=== PATIENT | male | born 1950 | race African-American/Black ===

== ENCOUNTER 2021-06-19 09:21 | Day surgery (SDC) | payer OTHER ==
[2021-06-19] MEDS ORDERED: FAMOTIDINE 20 MG/50 ML IVPB 20 MG/50 ML MG IVPB ONE (10:00)
[2021-06-19] MEDS ORDERED: DEXAMETHASONE SODIUM PHOSPHATE 10 MG, DIPHENHYDRAMINE 25 MG in SODIUM CHLORIDE 100 ML IVPB ONE (10:00)
[2021-06-19] MEDS ORDERED: PALONOSETRON HCL 0.25 MG/5 ML VIAL IVPUSH ONE (10:00)
[2021-06-19] MEDS ORDERED: PACLITAXEL IVPB ONE (10:30)
[2021-06-19] MEDS ORDERED: SODIUM CHLORIDE IVPB ONE (10:30)
[2021-06-19] MEDS ORDERED: CARBOplatin 135 MG in SODIUM CHLORIDE 250 ML IVPB ONE (11:00)
[2021-06-19 11:31] LABS: ALBUMIN 3.2 g/dl (3.4-5.0); BLOOD UREA NITROGEN 17.6 mg/dL (7-18); CALCIUM 8.6 mg/dL (8.5-10.1)
[2021-06-19 11:34] LABS: CREATININE 1.8 mg/dL (0.55-1.3)
[2021-06-19 11:36] LABS: BILIRUBIN,TOTAL 0.4 mg/dL (0.2-1); TOT PROT 5.8 g/dl (6.4-8.2)
[2021-06-19 11:47] LABS: BASO % 0.7 % (0-2.0); EOS % 9.9 % (0-4.5); HEMATOCRIT 29.7 % (35.4-49); HEMOGLOBIN 9.7 GM/dL (11.7-16.9); MCH 30.7 pg (25.7-33.7); MCHC 32.7 g/dl (32.0-35.9); MEAN CELL VOLUME 93.9 fl (80-96); MEAN PLT VOLUME 7.4 fl (7.5-11.1); NEUT % 71.4 % (42.8-82.8); PLATELET COUNT 252 10^3/uL (134-434); RBC 3.16 M/mm3 (4.00-5.60); RDW 18.6 % (11.9-15.9); WHITE BLOOD COUNT 6.4 K/mm3 (4.0-10.0)
[2021-06-19 17:45] VITALS: TEMP 98.3
[2021-06-19 18:36] VITALS: BP 145/76; PULSE 102
== END 2021-06-19 18:43 | disposition home or self-care (01) ==
LOC: JCHEMO 09:21 → J7W 09:36 → JCHEMO 18:43
PROVIDERS: ATTEND Internal Medicine Hematology & Oncology
PROC: 02HV33Z Insertion of Infusion Device into Superior Vena Cava, Percutaneous Approach (ICD-10-PCS; principal; 2021-06-19)
PROC: B518ZZA Fluoroscopy of Superior Vena Cava, Guidance (ICD-10-PCS; 2021-06-19)
DX: Z51.11 Encounter for antineoplastic chemotherapy (principal); C34.90 Malignant neoplasm of unspecified part of unspecified bronchus or lung
CPT/HCPCS: 36415; 36569; 36573; 77001-TC-FY; 80053; 85025; 96367; 96375; 96413; 96417; C1751; J2469

== ENCOUNTER 2021-06-26 09:54 | Day surgery (SDC) | payer OTHER ==
[~2021-06-26 09:54] MED LIST: DEXAMETHASONE SODIUM PHOSPHATE 10 MG, DIPHENHYDRAMINE 25 MG in SODIUM CHLORIDE 100 ML IVPB ONE; FAMOTIDINE 20 MG/50 ML IVPB 20 MG/50 ML MG IVPB ONE; PACLITAXEL IVPB ONE; PALONOSETRON HCL 0.25 MG/5 ML VIAL IVPUSH ONE; SODIUM CHLORIDE IVPB ONE
[2021-06-26] MEDS ORDERED: CARBOplatin 135 MG in SODIUM CHLORIDE 250 ML IVPB ONE (10:00)
[2021-06-26 11:47] LABS: BASO % 0.5 % (0-2.0); EOS % 4.8 % (0-4.5); HEMATOCRIT 27.4 % (35.4-49); LYMPH % 5.1 % (8-40); MCH 30.8 pg (25.7-33.7); MCHC 32.9 g/dl (32.0-35.9); MEAN CELL VOLUME 93.7 fl (80-96); MEAN PLT VOLUME 6.9 fl (7.5-11.1); MONO % 6.9 % (3.8-10.2); NEUT % 82.7 % (42.8-82.8); PLATELET COUNT 297 10^3/uL (134-434); RBC 2.92 M/mm3 (4.00-5.60); WHITE BLOOD COUNT 6.1 K/mm3 (4.0-10.0)
[2021-06-26 12:59] LABS: ALBUMIN 3.2 g/dl (3.4-5.0); BILIRUBIN,TOTAL 0.4 mg/dL (0.2-1); BLOOD UREA NITROGEN 21.8 mg/dL (7-18); CALCIUM 8.8 mg/dL (8.5-10.1); CREATININE 1.8 mg/dL (0.55-1.3); TOT PROT 5.9 g/dl (6.4-8.2)
[2021-06-26 16:09] VITALS: BP 111/54; PULSE 67; TEMP 154
== END 2021-06-26 15:58 | disposition home or self-care (01) ==
LOC: JRADIR 09:54
PROVIDERS: ATTEND Internal Medicine Hematology & Oncology
PROC: 02HV33Z Insertion of Infusion Device into Superior Vena Cava, Percutaneous Approach (ICD-10-PCS; principal; 2021-06-26)
PROC: B518ZZA Fluoroscopy of Superior Vena Cava, Guidance (ICD-10-PCS; 2021-06-26)
PROC: 3E04305 Introduction of Other Antineoplastic into Central Vein, Percutaneous Approach (ICD-10-PCS; 2021-06-26)
DX: Z51.11 Encounter for antineoplastic chemotherapy (principal); C34.90 Malignant neoplasm of unspecified part of unspecified bronchus or lung
CPT/HCPCS: 36415; 36569; 36573; 77001-TC-FY; 80053; 85025; 96367; 96375; 96413; 96417; C1751; J2469

== ENCOUNTER 2021-07-03 09:38 | Day surgery (SDC) | payer OTHER ==
[2021-07-03] MEDS ORDERED: CARBOplatin 135 MG in SODIUM CHLORIDE 250 ML IVPB ONE (10:00)
[2021-07-03 11:19] LABS: BASO % 0.9 % (0-2.0); EOS % 3.7 % (0-4.5); HEMATOCRIT 25.3 % (35.4-49); HEMOGLOBIN 8.2 GM/dL (11.7-16.9); LYMPH % 6.3 % (8-40); MCH 30.4 pg (25.7-33.7); MCHC 32.5 g/dl (32.0-35.9); MEAN CELL VOLUME 93.7 fl (80-96); MONO % 7.5 % (3.8-10.2); NEUT % 81.6 % (42.8-82.8); PLATELET COUNT 277 10^3/uL (134-434); RDW 18.4 % (11.9-15.9); WHITE BLOOD COUNT 5.1 K/mm3 (4.0-10.0)
[2021-07-03 11:49] LABS: ALBUMIN 3.1 g/dl (3.4-5.0); BLOOD UREA NITROGEN 20.9 mg/dL (7-18); CALCIUM 8.8 mg/dL (8.5-10.1)
[2021-07-03 11:53] LABS: CREATININE 1.9 mg/dL (0.55-1.3)
[2021-07-03 11:55] LABS: BILIRUBIN,TOTAL 0.4 mg/dL (0.2-1); TOT PROT 5.9 g/dl (6.4-8.2)
[2021-07-03 17:15] VITALS: BP 118/63; PULSE 70; TEMP 98.5
== END 2021-07-03 17:00 | disposition home or self-care (01) ==
LOC: JRADIR 09:38
PROVIDERS: ATTEND Internal Medicine Hematology & Oncology
PROC: 02HV33Z Insertion of Infusion Device into Superior Vena Cava, Percutaneous Approach (ICD-10-PCS; principal; 2021-07-03)
PROC: B518ZZA Fluoroscopy of Superior Vena Cava, Guidance (ICD-10-PCS; 2021-07-03)
PROC: 3E04305 Introduction of Other Antineoplastic into Central Vein, Percutaneous Approach (ICD-10-PCS; 2021-07-03)
DX: Z51.11 Encounter for antineoplastic chemotherapy (principal); C34.90 Malignant neoplasm of unspecified part of unspecified bronchus or lung
CPT/HCPCS: 36415; 36569; 36573; 77001-TC-FY; 80053; 85025; 96367; 96413; 96417; C1751; J2469

== ENCOUNTER 2021-07-10 09:53 | Day surgery (SDC) | payer OTHER ==
[2021-07-10] MEDS ORDERED: PALONOSETRON HCL 0.25 MG/5 ML VIAL IVPUSH ONE (10:30)
[2021-07-10] MEDS ORDERED: FAMOTIDINE 20 MG/50 ML IVPB 20 MG/50 ML MG IVPB ONE (10:30)
[2021-07-10] MEDS ORDERED: DEXAMETHASONE SODIUM PHOSPHATE 10 MG, DIPHENHYDRAMINE 25 MG in SODIUM CHLORIDE 100 ML IVPB ONE (10:30)
[2021-07-10] MEDS ORDERED: PACLITAXEL IVPB ONE (11:00)
[2021-07-10] MEDS ORDERED: SODIUM CHLORIDE IVPB ONE ×2 (11:00→12:00)
[2021-07-10 11:10] LABS: BASO % 1.2 % (0-2.0); EOS % 2.4 % (0-4.5); HEMATOCRIT 24.4 % (35.4-49); HEMOGLOBIN 8.1 GM/dL (11.7-16.9); LYMPH % 7.1 % (8-40); MCH 31.3 pg (25.7-33.7); MCHC 33.3 g/dl (32.0-35.9); MEAN CELL VOLUME 93.8 fl (80-96); MEAN PLT VOLUME 6.8 fl (7.5-11.1); MONO % 9.3 % (3.8-10.2); PLATELET COUNT 190 10^3/uL (134-434); RDW 17.9 % (11.9-15.9); WHITE BLOOD COUNT 3.7 K/mm3 (4.0-10.0)
[2021-07-10 11:37] LABS: ALBUMIN 3.1 g/dl (3.4-5.0); BLOOD UREA NITROGEN 19.7 mg/dL (7-18); CALCIUM 8.7 mg/dL (8.5-10.1)
[2021-07-10 11:40] LABS: CREATININE 2.1 mg/dL (0.55-1.3)
[2021-07-10 11:42] LABS: BILIRUBIN,TOTAL 0.4 mg/dL (0.2-1); TOT PROT 6.3 g/dl (6.4-8.2)
[2021-07-10] MEDS ORDERED: CARBOplatin 135 MG in SODIUM CHLORIDE 250 ML IVPB ONE (12:00)
[2021-07-10] MEDS ORDERED: CARBOPLATIN IVPB ONE (12:00)
[2021-07-10 16:16] VITALS: TEMP 98.3
[2021-07-10 16:26] VITALS: BP 131/56; PULSE 68
== END 2021-07-10 15:35 | disposition home or self-care (01) ==
LOC: JRADIR 09:53
PROVIDERS: ATTEND Internal Medicine Hematology & Oncology
PROC: 05HY33Z Insertion of Infusion Device into Upper Vein, Percutaneous Approach (ICD-10-PCS; principal; 2021-07-10)
DX: C34.90 Malignant neoplasm of unspecified part of unspecified bronchus or lung (principal)
CPT/HCPCS: 36415; 36569; 36573; 77001-TC-FY; 80053; 85025; 86850; 86870; 86880; 86900; 86901; 86902; C1751; J2469

== ENCOUNTER 2021-07-17 09:27 | Inpatient (IN) | payer OTHER ==
[2021-07-17] MEDS ORDERED: SODIUM CHLORIDE 2,109 ML IV ONE (10:37)
[2021-07-17] MEDS ORDERED: ACETAMINOPHEN 500 MG TABLET (FP) PO ONE (10:38)
[2021-07-17] MEDS ORDERED: VANCOMYCIN 1 GM in D5W (PRE-DOCKED) 1,000 MG/250 ML IVPB ONE (10:39)
[2021-07-17] MEDS ORDERED: ACETAMINOPHEN 325 MG TABLET (FP) ONE (10:51)
[2021-07-17] MEDS ORDERED: VANCOMYCIN 1 GRAM (PRE-DOCKED) 1,000 MG/250 ML BAG IVPB ONE (10:52)
[2021-07-17 12:34] LABS: VENOUS BASE EXCESS 3.7 mmol/L (-2-2); VENOUS PCO2 43.8 mmHg (38-52); VENOUS PH 7.43 (7.310-7.410)
[2021-07-17 12:37] LABS: BASO % 0.9 % (0-2.0); EOS % 1.7 % (0-4.5); HEMOGLOBIN 7.4 GM/dL (11.7-16.9); LYMPH % 3.3 % (8-40); MCH 30.2 pg (25.7-33.7); MCHC 32.4 g/dl (32.0-35.9); MEAN CELL VOLUME 93.4 fl (80-96); MEAN PLT VOLUME 7.1 fl (7.5-11.1); MONO % 9.7 % (3.8-10.2); NEUT % 84.4 % (42.8-82.8); PLATELET COUNT 128 10^3/uL (134-434); RBC 2.46 M/mm3 (4.00-5.60); RDW 19.4 % (11.9-15.9); WHITE BLOOD COUNT 4.3 K/mm3 (4.0-10.0)
[2021-07-17 13:06] LABS: CALCIUM 8.6 mg/dL (8.5-10.1)
[2021-07-17 13:07] LABS: ALBUMIN 3.2 g/dl (3.4-5.0)
[2021-07-17 13:08] LABS: INR 1.1 (0.83-1.09); PROTHROMBIN TIME (PATIENT) 12.9 SEC (9.7-13.0)
[2021-07-17 13:10] LABS: CREATININE 1.7 mg/dL (0.55-1.3)
[2021-07-17 13:12] LABS: BILIRUBIN,TOTAL 0.6 mg/dL (0.2-1); TOT PROT 6.1 g/dl (6.4-8.2)
[2021-07-17] MEDS ORDERED: INSULIN SLIDING SCALE (NOVOLOG) 1 VIAL SQ SCH (22:00)
[2021-07-17] MEDS ORDERED: metFORMIN HCL 500 MG TABLET (FP) PO SCH (22:00)
[2021-07-17] MEDS: ACETAMINOPHEN 325 MG TABLET (FP) PO PRN (23:49)
[2021-07-17] MEDS: HEPARIN NA (PORCINE) 5,000 UNITS/ML 1ML VIAL SQ SCH (23:49)
[2021-07-17] MEDS: ATORVASTATIN CA 20 MG TABLET (FP) PO SCH (23:50)
[2021-07-17] MEDS: INSULIN SLIDING SCALE (NOVOLOG) 1 VIAL SQ SCH (23:52)
[2021-07-18 01:34] VITALS: BMI 19.8
[2021-07-18] MEDS: metFORMIN HCL 500 MG TABLET (FP) PO SCH ×2 (06:51→17:07)
[2021-07-18] MEDS: INSULIN SLIDING SCALE (NOVOLOG) 1 VIAL SQ SCH ×4 (06:55→21:39)
[2021-07-18] MEDS ORDERED: DEXTROSE 5%-WATER 100 ML IVPB ONE (09:22)
[2021-07-18] MEDS: HEPARIN NA (PORCINE) 5,000 UNITS/ML 1ML VIAL SQ SCH ×2 (09:32→21:59)
[2021-07-18 09:34] LABS: BASO % 0.6 % (0-2.0); EOS % 1.6 % (0-4.5); HEMATOCRIT 25.3 % (35.4-49); HEMOGLOBIN 8.4 GM/dL (11.7-16.9); LYMPH % 6.9 % (8-40); MEAN CELL VOLUME 93.7 fl (80-96); MEAN PLT VOLUME 7.4 fl (7.5-11.1); MONO % 11.4 % (3.8-10.2); NEUT % 79.5 % (42.8-82.8); PLATELET COUNT 146 10^3/uL (134-434); RDW 19.1 % (11.9-15.9); WHITE BLOOD COUNT 3.6 K/mm3 (4.0-10.0)
[2021-07-18] MEDS: PANTOPRAZOLE 20 MG TABLET PO SCH (09:38)
[2021-07-18 09:58] LABS: ALBUMIN 3.3 g/dl (3.4-5.0); BLOOD UREA NITROGEN 16.1 mg/dL (7-18); MAGNESIUM 2.3 mg/dL (1.8-2.4)
[2021-07-18 10:00] LABS: CREATININE 1.6 mg/dL (0.55-1.3)
[2021-07-18] MEDS ORDERED: CEFTRIAXONE 2 GM in DEXTROSE 5%-WATER 2 GM/100 ML BAG IVPB SCH (10:00)
[2021-07-18 10:01] LABS: BILIRUBIN,TOTAL 0.7 mg/dL (0.2-1); TOT PROT 6.3 g/dl (6.4-8.2)
[2021-07-18] MEDS ORDERED: VANCOMYCIN 750 MG in DEXTROSE 5%-WATER - 150 ML IVPB ONE (13:00)
[2021-07-18] MEDS ORDERED: VANCOMYCIN 1,000 MG in DEXTROSE 5%-WATER - 250 ML IVPB ONE (13:00)
[2021-07-18] MEDS ORDERED: VANCOMYCIN/WATER FOR INJ (PEG) 750 MG/150 ML BAG IVPB ONE (13:00)
[2021-07-18] MEDS: ACETAMINOPHEN 325 MG TABLET (FP) PO PRN (21:40)
[2021-07-18] MEDS: ATORVASTATIN CA 20 MG TABLET (FP) PO SCH (21:40)
[2021-07-19 05:03] VITALS: BP 130/56; PULSE 70; TEMP 98.2
[2021-07-19] MEDS: INSULIN SLIDING SCALE (NOVOLOG) 1 VIAL SQ SCH ×2 (06:14→11:14)
[2021-07-19] MEDS: metFORMIN HCL 500 MG TABLET (FP) PO SCH (06:15)
[2021-07-19 09:03] LABS: BLOOD UREA NITROGEN 17.8 mg/dL (7-18); CALCIUM 8.9 mg/dL (8.5-10.1)
[2021-07-19 09:07] LABS: CREATININE 1.7 mg/dL (0.55-1.3)
[2021-07-19] MEDS: PANTOPRAZOLE 20 MG TABLET PO SCH (11:07)
[2021-07-19] MEDS: HEPARIN NA (PORCINE) 5,000 UNITS/ML 1ML VIAL SQ SCH (11:07)
[2021-07-19] MEDS ORDERED: CLINDAMYCIN HCL 150 MG CAPSULE (FP) PO SCH (14:00)
== END 2021-07-19 14:59 | disposition home or self-care (01) | DRG 603 ==
LOC: JER 09:27 → JERBED 16:08 → OBSVTOIN 18:14 → J6S 23:07
PROVIDERS: ADMIT Family Medicine; ATTEND Family Medicine
DX: L03.114 Cellulitis of left upper limb (principal); C34.90 Malignant neoplasm of unspecified part of unspecified bronchus or lung; I10 Essential (primary) hypertension; E11.9 Type 2 diabetes mellitus without complications; T45.1X5A Adverse effect of antineoplastic and immunosuppressive drugs, initial encounter; D64.9 Anemia, unspecified
CPT/HCPCS: 36415; 80048; 80053; 82728; 82803; 82962; 83605; 83735; 84443; 85025; 85610; 85651; 85730; 86140; 87040; 87081; 93005; 93010; 93971; 99285-25; C9803; G0378; G0480; J1644; U0003; U0005

== ENCOUNTER 2021-07-24 09:33 | Day surgery (SDC) | payer OTHER ==
[2021-07-24] MEDS ORDERED: PALONOSETRON HCL 0.25 MG/5 ML VIAL IVPUSH ONE (10:00)
[2021-07-24] MEDS ORDERED: FAMOTIDINE 20 MG/50 ML IVPB 20 MG/50 ML MG IVPB ONE (10:00)
[2021-07-24] MEDS ORDERED: DEXAMETHASONE SODIUM PHOSPHATE 10 MG, DIPHENHYDRAMINE 25 MG in SODIUM CHLORIDE 100 ML IVPB ONE (10:00)
[2021-07-24] MEDS ORDERED: PACLITAXEL IVPB ONE (10:30)
[2021-07-24] MEDS ORDERED: SODIUM CHLORIDE IVPB ONE ×2 (10:30→12:00)
[2021-07-24 10:41] LABS: EOS % 3.3 % (0-4.5); HEMATOCRIT 25.5 % (35.4-49); HEMOGLOBIN 8.3 GM/dL (11.7-16.9); LYMPH % 5.3 % (8-40); MCH 30.5 pg (25.7-33.7); MCHC 32.5 g/dl (32.0-35.9); MEAN CELL VOLUME 93.7 fl (80-96); MEAN PLT VOLUME 7.1 fl (7.5-11.1); NEUT % 79.4 % (42.8-82.8); PLATELET COUNT 195 10^3/uL (134-434); RBC 2.72 M/mm3 (4.00-5.60); RDW 19.4 % (11.9-15.9); WHITE BLOOD COUNT 4.2 K/mm3 (4.0-10.0)
[2021-07-24 10:42] LABS: CALCIUM 8.5 mg/dL (8.5-10.1)
[2021-07-24 10:43] LABS: ALBUMIN 3.1 g/dl (3.4-5.0); BLOOD UREA NITROGEN 19.6 mg/dL (7-18)
[2021-07-24 10:48] LABS: BILIRUBIN,TOTAL 0.4 mg/dL (0.2-1); TOT PROT 6.3 g/dl (6.4-8.2)
[2021-07-24] MEDS ORDERED: CARBOplatin 135 MG in SODIUM CHLORIDE 250 ML IVPB ONE (11:30)
[2021-07-24] MEDS ORDERED: CARBOPLATIN IVPB ONE (12:00)
[2021-07-24 16:28] VITALS: BP 114/51; PULSE 68; TEMP 98.4
== END 2021-07-24 15:15 | disposition home or self-care (01) ==
LOC: JRADIR 09:33
PROVIDERS: ATTEND Internal Medicine Hematology & Oncology
PROC: 02HV33Z Insertion of Infusion Device into Superior Vena Cava, Percutaneous Approach (ICD-10-PCS; principal; 2021-07-24)
PROC: B518ZZA Fluoroscopy of Superior Vena Cava, Guidance (ICD-10-PCS; 2021-07-24)
DX: Z51.11 Encounter for antineoplastic chemotherapy (principal); C34.90 Malignant neoplasm of unspecified part of unspecified bronchus or lung
CPT/HCPCS: 36415; 36569; 36573; 80053; 85025; 96367; 96375; 96413; 96417; J2469

== ENCOUNTER 2021-08-07 11:28 | Day surgery (SDC) | payer OTHER ==
[~2021-08-07 11:28] MED LIST changes: +PACLITAXEL 84 MG in SODIUM CHLORIDE 250 ML IVPB ONE; -PACLITAXEL IVPB ONE; -SODIUM CHLORIDE IVPB ONE
[2021-08-07 12:25] LABS: HEMATOCRIT 27.1 % (35.4-49); HEMOGLOBIN 8.4 GM/dL (11.7-16.9); MCH 28.9 pg (25.7-33.7); MCHC 30.9 g/dl (32.0-35.9); MEAN CELL VOLUME 93.6 fl (80-96); MEAN PLT VOLUME 7.1 fl (7.5-11.1); PLATELET COUNT 270 10^3/uL (134-434); RBC 2.89 M/mm3 (4.00-5.60); RDW 21.9 % (11.9-15.9); WHITE BLOOD COUNT 3.2 K/mm3 (4.0-10.0)
[2021-08-07 12:45] LABS: ALBUMIN 3.6 g/dl (3.4-5.0)
[2021-08-07 12:48] LABS: CREATININE 2.1 mg/dL (0.55-1.3)
[2021-08-07 12:49] LABS: BILIRUBIN,TOTAL 0.7 mg/dL (0.2-1); TOT PROT 6.5 g/dl (6.4-8.2)
[2021-08-07 13:03] LABS: ANISOCYTOSIS 2+; MACROCYTOSIS 0; OVALOCYTE 2+; PLATELET ESTIMATE NORMAL
[2021-08-07] MEDS: CARBOplatin 135 MG in SODIUM CHLORIDE 250 ML IVPB ONE ×2 (15:22→16:57)
[2021-08-07 16:13] VITALS: TEMP 97.9
[2021-08-07 16:21] VITALS: BP 143/53; PULSE 69
[2021-08-07] MEDS ORDERED: SODIUM CHLORIDE IVPB ONE (16:45)
[2021-08-07] MEDS ORDERED: CARBOPLATIN IVPB ONE (16:45)
== END 2021-08-07 16:00 | disposition home or self-care (01) ==
LOC: JRADIR 11:28
PROVIDERS: ATTEND Internal Medicine Hematology & Oncology
PROC: 02HV33Z Insertion of Infusion Device into Superior Vena Cava, Percutaneous Approach (ICD-10-PCS; principal; 2021-08-07)
PROC: B518ZZA Fluoroscopy of Superior Vena Cava, Guidance (ICD-10-PCS; 2021-08-07)
PROC: 3E04305 Introduction of Other Antineoplastic into Central Vein, Percutaneous Approach (ICD-10-PCS; 2021-08-07)
DX: Z51.11 Encounter for antineoplastic chemotherapy (principal); C34.90 Malignant neoplasm of unspecified part of unspecified bronchus or lung
CPT/HCPCS: 36415; 36569; 36573; 80053; 85025; 96367; 96375; 96413; 96417; J2469

== ENCOUNTER 2021-08-14 09:22 | Day surgery (SDC) | payer OTHER ==
[2021-08-14] MEDS ORDERED: DEXAMETHASONE SODIUM PHOSPHATE 10 MG, DIPHENHYDRAMINE 25 MG in SODIUM CHLORIDE 100 ML IVPB ONE (10:30)
[2021-08-14] MEDS ORDERED: PALONOSETRON HCL 0.25 MG/5 ML VIAL IVPUSH ONE (10:30)
[2021-08-14] MEDS ORDERED: FAMOTIDINE 20 MG/50 ML IVPB 20 MG/50 ML MG IVPB ONE (10:30)
[2021-08-14] MEDS ORDERED: PACLITAXEL 84 MG in SODIUM CHLORIDE 250 ML IVPB ONE (11:00)
[2021-08-14] MEDS ORDERED: CARBOplatin 135 MG in SODIUM CHLORIDE 250 ML IVPB ONE (12:00)
[2021-08-14 12:34] LABS: BASO % 0.5 % (0-2.0); EOS % 3.9 % (0-4.5); HEMATOCRIT 24.7 % (35.4-49); HEMOGLOBIN 7.8 GM/dL (11.7-16.9); MCH 29.7 pg (25.7-33.7); MCHC 31.6 g/dl (32.0-35.9); MEAN PLT VOLUME 7.1 fl (7.5-11.1); NEUT % 78.6 % (42.8-82.8); PLATELET COUNT 248 10^3/uL (134-434); RBC 2.63 M/mm3 (4.00-5.60); RDW 21.8 % (11.9-15.9)
[2021-08-14 12:57] LABS: ALBUMIN 3.3 g/dl (3.4-5.0); CALCIUM 8.7 mg/dL (8.5-10.1)
[2021-08-14 12:58] LABS: BLOOD UREA NITROGEN 21.4 mg/dL (7-18)
[2021-08-14 13:02] LABS: BILIRUBIN,TOTAL 0.6 mg/dL (0.2-1); TOT PROT 5.8 g/dl (6.4-8.2)
[2021-08-14 13:48] LABS: ANISOCYTOSIS 1+; MACROCYTOSIS 1+; PLATELET ESTIMATE NORMAL
[2021-08-14] MEDS ORDERED: CARBOPLATIN IVPB ONE (14:00)
[2021-08-14] MEDS ORDERED: SODIUM CHLORIDE IVPB ONE (14:00)
[2021-08-14 16:38] VITALS: TEMP 98.8
[2021-08-14 16:47] VITALS: BP 142/66; PULSE 78
== END 2021-08-14 16:30 | disposition home or self-care (01) ==
LOC: JINFUSION 09:22 → J7W 11:12 → JINFUSION 16:30
PROVIDERS: ATTEND Internal Medicine Hematology & Oncology
PROC: 3E04305 Introduction of Other Antineoplastic into Central Vein, Percutaneous Approach (ICD-10-PCS; principal; 2021-08-14)
PROC: 02HV33Z Insertion of Infusion Device into Superior Vena Cava, Percutaneous Approach (ICD-10-PCS; 2021-08-14)
PROC: B518ZZA Fluoroscopy of Superior Vena Cava, Guidance (ICD-10-PCS; 2021-08-14)
DX: Z51.11 Encounter for antineoplastic chemotherapy (principal); C34.91 Malignant neoplasm of unspecified part of right bronchus or lung
CPT/HCPCS: 36415; 36569; 80053; 85025; 96367; 96375; 96413; 96417; J2469

== ENCOUNTER 2022-02-08 08:52 | Day surgery (SDC) | payer OTHER ==
[~2022-02-08 08:52] MED LIST changes: -DEXAMETHASONE SODIUM PHOSPHATE 10 MG, DIPHENHYDRAMINE 25 MG in SODIUM CHLORIDE 100 ML IVPB ONE; -FAMOTIDINE 20 MG/50 ML IVPB 20 MG/50 ML MG IVPB ONE; -PACLITAXEL 84 MG in SODIUM CHLORIDE 250 ML IVPB ONE; -PALONOSETRON HCL 0.25 MG/5 ML VIAL IVPUSH ONE; +SODIUM CHLORIDE 250 ML IV ONE
[2022-02-08] MEDS ORDERED: SODIUM CHLORIDE 250 ML IV ONE (09:00)
[2022-02-08] MEDS ORDERED: DURVALUMAB IV ONE (10:00)
[2022-02-08] MEDS ORDERED: SODIUM CHLORIDE IV ONE (10:00)
[2022-02-08 11:09] LABS: BASO % 0.9 % (0-2.0); HEMATOCRIT 27.4 % (35.4-49); HEMOGLOBIN 8.6 GM/dL (11.7-16.9); LYMPH % 3.9 % (8-40); MCHC 31.3 g/dl (32.0-35.9); MEAN CELL VOLUME 86.5 fl (80-96); MEAN PLT VOLUME 7.6 fl (7.5-11.1); MONO % 9.9 % (3.8-10.2); NEUT % 75.3 % (42.8-82.8); PLATELET COUNT 198 10^3/uL (134-434); RBC 3.17 M/mm3 (4.00-5.60); RDW 18.9 % (11.9-15.9); WHITE BLOOD COUNT 5.7 K/mm3 (4.0-10.0)
[2022-02-08 13:48] LABS: CALCIUM 8.7 mg/dL (8.5-10.1)
[2022-02-08 13:49] LABS: ALBUMIN 3.2 g/dl (3.4-5.0); BLOOD UREA NITROGEN 15.6 mg/dL (7-18)
[2022-02-08 13:51] LABS: BILIRUBIN,DIRECT 0.2 mg/dL (0.0-0.2); CREATININE 1.6 mg/dL (0.55-1.3)
[2022-02-08 13:53] LABS: TOT PROT 6.1 g/dl (6.4-8.2)
[2022-02-08 13:54] LABS: BILIRUBIN,TOTAL 0.5 mg/dL (0.2-1)
[2022-02-08 13:55] LABS: N-TERMINAL BNP 2742.7 pg/ml (5-125)
[2022-02-08 14:50] LABS: EPI CELLS 9 /uL (0-25.1); HYALINE CASTS 2 /uL (0-3.1); URINE APPEARANCE CLEAR; URINE BILIRUBIN NEGATIVE (NEGATIVE); URINE COLOR YELLOW; URINE GLUCOSE (UA) NEGATIVE (NEGATIVE); URINE KETONE NEGATIVE (NEGATIVE); URINE LEUK ESTERASE NEGATIVE (NEGATIVE); URINE NITRITE NEGATIVE (NEGATIVE); URINE PROTEIN 2+ (NEGATIVE); URINE RBC 26 /uL (0-23.9); URINE WBC 3 /uL (0-25.8)
[2022-02-08 17:41] VITALS: TEMP 97.8
[2022-02-08 18:09] VITALS: BP 178/78; PULSE 70
== END 2022-02-08 17:00 | disposition home or self-care (01) ==
LOC: JCHEMO 08:52 → J7W 08:53 → JCHEMO 17:00
PROVIDERS: ATTEND Internal Medicine Hematology & Oncology
PROC: 02HV33Z Insertion of Infusion Device into Superior Vena Cava, Percutaneous Approach (ICD-10-PCS; principal; 2022-02-08)
PROC: B518ZZA Fluoroscopy of Superior Vena Cava, Guidance (ICD-10-PCS; 2022-02-08)
PROC: 3E04305 Introduction of Other Antineoplastic into Central Vein, Percutaneous Approach (ICD-10-PCS; 2022-02-08)
DX: Z51.11 Encounter for antineoplastic chemotherapy (principal); C34.12 Malignant neoplasm of upper lobe, left bronchus or lung
CPT/HCPCS: 36415; 36569; 77001-TC-FY; 80048; 80076; 81003; 82150; 82533; 82550; 83690; 83880; 84439; 84443; 84484; 85025; 96413; C1751; J9173

== ENCOUNTER 2022-02-21 04:35 | Day surgery (SDC) | payer OTHER ==
[2022-02-20 12:20] VITALS: BMI 19.1
[2022-02-21] MEDS ORDERED: MIDAZOLAM HCL 2 MG/2 ML SINGLE DOSE VIAL ONE (12:06)
[2022-02-21] MEDS ORDERED: MIDAZOLAM HCL 2 MG/2 ML SINGLE DOSE VIAL IVPUSH ONE ×2 (12:30→12:55)
[2022-02-21] MEDS ORDERED: FENTANYL CITRATE/PF 50 MCG/ML VIAL IVPUSH ONE (12:30)
[2022-02-21] MEDS ORDERED: LABETALOL HCL 5 MG/1 ML (100MG/20 ML VIAL) ONE (12:39)
[2022-02-21] MEDS ORDERED: LABETALOL HCL 5 MG/1 ML (100MG/20 ML VIAL) IVPUSH ONE (12:40)
[2022-02-21] MEDS ORDERED: ACETAMINOPHEN 325 MG TABLET (FP) ONE (14:30)
[2022-02-21] MEDS ORDERED: ACETAMINOPHEN 325 MG TABLET (FP) PO ONE (14:30)
[2022-02-21 15:44] VITALS: BP 166/79; PULSE 78; TEMP 97.7
== END 2022-02-21 15:55 | disposition home or self-care (01) ==
LOC: JRADIR 04:35
PROVIDERS: ATTEND Internal Medicine Hematology & Oncology
PROC: 0JH63WZ Insertion of Totally Implantable Vascular Access Device into Chest Subcutaneous Tissue and Fascia, Percutaneous Approach (ICD-10-PCS; principal; 2022-02-21)
PROC: 02HV33Z Insertion of Infusion Device into Superior Vena Cava, Percutaneous Approach (ICD-10-PCS; 2022-02-21)
PROC: B518ZZA Fluoroscopy of Superior Vena Cava, Guidance (ICD-10-PCS; 2022-02-21)
DX: C34.90 Malignant neoplasm of unspecified part of unspecified bronchus or lung (principal)
CPT/HCPCS: 36561; C1788; 77001-TC-FY

== ENCOUNTER 2022-02-22 07:41 | Day surgery (SDC) | payer OTHER ==
[2022-02-22 08:54] LABS: BASO % 1.2 % (0-2.0); EOS % 4.2 % (0-4.5); HEMATOCRIT 26.5 % (35.4-49); HEMOGLOBIN 8.2 GM/dL (11.7-16.9); LYMPH % 8.8 % (8-40); MCH 26.5 pg (25.7-33.7); MEAN CELL VOLUME 85.4 fl (80-96); MONO % 9.3 % (3.8-10.2); NEUT % 76.5 % (42.8-82.8); PLATELET COUNT 272 10^3/uL (134-434); RBC 3.11 M/mm3 (4.00-5.60); RDW 17.8 % (11.9-15.9); WHITE BLOOD COUNT 4.7 K/mm3 (4.0-10.0)
[2022-02-22 09:05] LABS: CALCIUM 8.9 mg/dL (8.5-10.1)
[2022-02-22 09:06] LABS: ALBUMIN 3.2 g/dl (3.4-5.0); BLOOD UREA NITROGEN 18.1 mg/dL (7-18)
[2022-02-22 09:08] LABS: BILIRUBIN,DIRECT 0.2 mg/dL (0.0-0.2)
[2022-02-22 09:09] LABS: CREATININE 1.9 mg/dL (0.55-1.3)
[2022-02-22 09:10] LABS: BILIRUBIN,TOTAL 0.6 mg/dL (0.2-1); TOT PROT 6.2 g/dl (6.4-8.2)
[2022-02-22 09:12] LABS: N-TERMINAL BNP 5548.6 pg/ml (5-125)
[2022-02-22] MEDS ORDERED: SODIUM CHLORIDE 250 ML IV ONE (09:30)
[2022-02-22] MEDS ORDERED: DURVALUMAB IV ONE (10:00)
[2022-02-22] MEDS ORDERED: SODIUM CHLORIDE IV ONE (10:00)
[2022-02-22 14:18] LABS: EPI CELLS 7 /uL (0-25.1); HYALINE CASTS 2 /uL (0-3.1); PH,URINE 5.5 (5.0-8.0); URINE APPEARANCE CLEAR; URINE BILIRUBIN NEGATIVE (NEGATIVE); URINE COLOR YELLOW; URINE GLUCOSE (UA) NEGATIVE (NEGATIVE); URINE KETONE NEGATIVE (NEGATIVE); URINE LEUK ESTERASE NEGATIVE (NEGATIVE); URINE NITRITE NEGATIVE (NEGATIVE); URINE PROTEIN 2+ (NEGATIVE); URINE RBC 5 /uL (0-23.9); URINE WBC 2 /uL (0-25.8)
[2022-02-22 15:23] VITALS: TEMP 98.3
[2022-02-22 15:33] VITALS: BP 165/86; PULSE 67; RESP 18
[2022-02-22] MEDS ORDERED: PORTA CATH FLUSH 10 ML IVPUSH PRN (15:33)
== END 2022-02-22 12:45 | disposition home or self-care (01) ==
LOC: JCHEMO 07:41
PROVIDERS: ATTEND Internal Medicine Hematology & Oncology
DX: Z51.11 Encounter for antineoplastic chemotherapy (principal); C34.12 Malignant neoplasm of upper lobe, left bronchus or lung
CPT/HCPCS: 36415; 80053; 80076; 81003; 82150; 82533; 82550; 83690; 83880; 84439; 84443; 84484; 85025; 96413; J9173

== ENCOUNTER 2022-03-08 08:00 | Day surgery (SDC) | payer OTHER ==
[2022-03-08] MEDS ORDERED: SODIUM CHLORIDE 250 ML IV ONE (09:30)
[2022-03-08 09:54] LABS: HEMATOCRIT 24.6 % (35.4-49); HEMOGLOBIN 7.5 GM/dL (11.7-16.9); MCH 25.6 pg (25.7-33.7); MCHC 30.7 g/dl (32.0-35.9); MEAN CELL VOLUME 83.5 fl (80-96); MEAN PLT VOLUME 7.8 fl (7.5-11.1); PLATELET COUNT 195 10^3/uL (134-434); RBC 2.94 M/mm3 (4.00-5.60); RDW 17.5 % (11.9-15.9); WHITE BLOOD COUNT 5.2 K/mm3 (4.0-10.0)
[2022-03-08] MEDS ORDERED: DURVALUMAB IV ONE (10:00)
[2022-03-08] MEDS ORDERED: SODIUM CHLORIDE IV ONE (10:00)
[2022-03-08 10:16] LABS: BLOOD UREA NITROGEN 18.2 mg/dL (7-18); CALCIUM 8.9 mg/dL (8.5-10.1)
[2022-03-08 10:19] LABS: BILIRUBIN,DIRECT 0.2 mg/dL (0.0-0.2); CREATININE 1.8 mg/dL (0.55-1.3)
[2022-03-08 10:20] LABS: BILIRUBIN,TOTAL 0.6 mg/dL (0.2-1); TOT PROT 5.8 g/dl (6.4-8.2)
[2022-03-08 10:22] LABS: N-TERMINAL BNP 5354.8 pg/ml (5-125)
[2022-03-08 13:36] VITALS: BP 130/61; PULSE 64; RESP 20; TEMP 98.3
[2022-03-08] MEDS ORDERED: PORTA CATH FLUSH 10 ML IVPUSH PRN (13:50)
== END 2022-03-08 13:30 | disposition home or self-care (01) ==
LOC: JCHEMO 08:00
PROVIDERS: ATTEND Internal Medicine Hematology & Oncology
DX: Z51.11 Encounter for antineoplastic chemotherapy (principal); C34.12 Malignant neoplasm of upper lobe, left bronchus or lung
CPT/HCPCS: 36415; 80048; 80076; 82150; 82533; 82550; 83690; 83880; 84439; 84443; 84484; 85027; 96413; J9173

== ENCOUNTER 2022-03-22 08:15 | Day surgery (SDC) | payer OTHER ==
[2022-03-22 09:28] LABS: BASO % 0.4 % (0-2.0); EOS % 1.8 % (0-4.5); EPI CELLS 10 /uL (0-25.1); HEMATOCRIT 23.2 % (35.4-49); HEMOGLOBIN 7.2 GM/dL (11.7-16.9); HYALINE CASTS 2 /uL (0-3.1); LYMPH % 3.1 % (8-40); MCH 24.8 pg (25.7-33.7); MEAN CELL VOLUME 79.8 fl (80-96); MONO % 4.5 % (3.8-10.2); NEUT % 90.2 % (42.8-82.8); PLATELET COUNT 390 10^3/uL (134-434); URINE APPEARANCE CLEAR; URINE BACTERIA 6 /uL (0-1359); URINE BILIRUBIN NEGATIVE (NEGATIVE); URINE COLOR YELLOW; URINE GLUCOSE (UA) 2+ (NEGATIVE); URINE KETONE NEGATIVE (NEGATIVE); URINE LEUK ESTERASE NEGATIVE (NEGATIVE); URINE NITRITE NEGATIVE (NEGATIVE); URINE PROTEIN 2+ (NEGATIVE); URINE RBC 3 /uL (0-23.9); URINE UROBILINOGEN 0.2 mg/dL (0.2-1.0); URINE WBC 8 /uL (0-25.8); WHITE BLOOD COUNT 7.4 K/mm3 (4.0-10.0)
[2022-03-22 09:54] LABS: BLOOD UREA NITROGEN 24.5 mg/dL (7-18); CALCIUM 8.4 mg/dL (8.5-10.1)
[2022-03-22 09:55] LABS: ALBUMIN 2.8 g/dl (3.4-5.0)
[2022-03-22 09:57] LABS: BILIRUBIN,DIRECT 0.1 mg/dL (0.0-0.2); CREATININE 2.5 mg/dL (0.55-1.3)
[2022-03-22 09:59] LABS: BILIRUBIN,TOTAL 0.4 mg/dL (0.2-1); TOT PROT 5.9 g/dl (6.4-8.2)
[2022-03-22] MEDS ORDERED: SODIUM CHLORIDE 250 ML IV ONE (10:30)
[2022-03-22] MEDS ORDERED: ALTEPLASE (CATHFLO) 2 MG/2 ML VIAL CVP ONE (10:45)
[2022-03-22] MEDS ORDERED: DURVALUMAB IV ONE (11:00)
[2022-03-22] MEDS ORDERED: SODIUM CHLORIDE IV ONE (11:00)
[2022-03-22 11:17] LABS: ANISOCYTOSIS 2+; MACROCYTOSIS 0; OVALOCYTE 2+
[2022-03-22 16:49] VITALS: TEMP 98.3
[2022-03-22] MEDS ORDERED: PORTA CATH FLUSH 10 ML IVPUSH PRN (16:49)
== END 2022-03-22 13:00 | disposition home or self-care (01) ==
LOC: J7W 08:15 → JCHEMO 08:15
PROVIDERS: ATTEND Internal Medicine Hematology & Oncology
PROC: 3E043GC Introduction of Other Therapeutic Substance into Central Vein, Percutaneous Approach (ICD-10-PCS; principal; 2022-03-22)
DX: C34.12 Malignant neoplasm of upper lobe, left bronchus or lung (principal); Z76.89 Persons encountering health services in other specified circumstances
CPT/HCPCS: 36415; 80048; 80076; 81003; 82150; 82533; 82550; 83690; 83880; 84439; 84443; 84484; 85025; 96360; J2997

== ENCOUNTER → 2022-04-05 | Day surgery (SDC) | payer OTHER ==
[~2022-04-05] MED LIST changes: +DURVALUMAB IV ONE; +SODIUM CHLORIDE IV ONE
== END | disposition home or self-care (01) ==
LOC: JRADIR 10:15
PROVIDERS: ATTEND Internal Medicine Hematology & Oncology
PROC: 0WP Anatomical Regions, General, Removal (ICD-10-PCS; principal; 2022-04-05)
DX: Z45.2 Encounter for adjustment and management of vascular access device (principal); C34.12 Malignant neoplasm of upper lobe, left bronchus or lung
CPT/HCPCS: 36590; 36598

== ENCOUNTER 2022-04-19 15:17 | Inpatient (IN) | payer OTHER ==
[2022-04-19 18:00] LABS: BASO % 0.5 % (0-2.0); HEMATOCRIT 16.4 % (35.4-49); LYMPH % 5.1 % (8-40); MCH 25.9 pg (25.7-33.7); MCHC 30.9 g/dl (32.0-35.9); MEAN CELL VOLUME 83.8 fl (80-96); MEAN PLT VOLUME 6.8 fl (7.5-11.1); MONO % 7.1 % (3.8-10.2); NEUT % 84.3 % (42.8-82.8); PLATELET COUNT 277 10^3/uL (134-434); RBC 1.96 M/mm3 (4.00-5.60); RDW 23.1 % (11.9-15.9); WHITE BLOOD COUNT 6.3 K/mm3 (4.0-10.0)
[2022-04-19 18:03] LABS: HEMOGLOBIN 5.1 GM/dL (11.7-16.9)
[2022-04-19 18:35] LABS: BLOOD UREA NITROGEN 26.8 mg/dL (7-18); CALCIUM 7.8 mg/dL (8.5-10.1)
[2022-04-19 18:36] LABS: ALBUMIN 2.5 g/dl (3.4-5.0)
[2022-04-19 18:39] LABS: CREATININE 2.2 mg/dL (0.55-1.3)
[2022-04-19 18:41] LABS: BILIRUBIN,TOTAL 0.7 mg/dL (0.2-1); TOT PROT 5.5 g/dl (6.4-8.2)
[2022-04-19 18:43] LABS: ANISOCYTOSIS 1+; MACROCYTOSIS 0; OVALOCYTE 1+
[2022-04-19 18:44] LABS: N-TERMINAL BNP 5886.2 pg/ml (5-125)
[2022-04-19] MEDS ORDERED: FUROSEMIDE 40 MG/4 ML INJECTABLE VIAL IVPUSH ONE (20:30)
[2022-04-19] MEDS ORDERED: FUROSEMIDE 40 MG/4 ML INJECTABLE VIAL IVPUSH SCH (20:30)
[2022-04-19] MEDS ORDERED: DEXTROSE 5%-0.45% SALINE 1,000 ML IV SCH (22:45)
[2022-04-20] MEDS: INSULIN SLIDING SCALE (NOVOLOG) 1 VIAL SQ SCH ×4 (06:35→21:53)
[2022-04-20] MEDS ORDERED: FUROSEMIDE 40 MG/4 ML INJECTABLE VIAL IVPUSH ONE (09:34)
[2022-04-20] MEDS: PANTOPRAZOLE 40 MG TABLET PO SCH (09:36)
[2022-04-20] MEDS ORDERED: FUROSEMIDE 40 MG/4 ML INJECTABLE VIAL IVPUSH SCH (10:00)
[2022-04-20] MEDS: ALBUTEROL SO4 2.5/IPRATROPIUM 0.5 INH SOL 3 ML VIAL.NEB. NEB PRN (11:01)
[2022-04-20 16:57] LABS: BASO % 0.7 % (0-2.0); EOS % 1.1 % (0-4.5); HEMATOCRIT 23.4 % (35.4-49); HEMOGLOBIN 7.5 GM/dL (11.7-16.9); LYMPH % 2.7 % (8-40); MCH 27.6 pg (25.7-33.7); MEAN CELL VOLUME 86.4 fl (80-96); MEAN PLT VOLUME 7.1 fl (7.5-11.1); MONO % 5.4 % (3.8-10.2); NEUT % 90.1 % (42.8-82.8); PLATELET COUNT 241 10^3/uL (134-434); RBC 2.71 M/mm3 (4.00-5.60); RDW 20.1 % (11.9-15.9); WHITE BLOOD COUNT 8.7 K/mm3 (4.0-10.0)
[2022-04-20 17:19] LABS: ALBUMIN 2.8 g/dl (3.4-5.0); CALCIUM 8.6 mg/dL (8.5-10.1)
[2022-04-20 17:23] LABS: CREATININE 2.4 mg/dL (0.55-1.3)
[2022-04-20 17:25] LABS: BILIRUBIN,TOTAL 1.9 mg/dL (0.2-1); TOT PROT 5.9 g/dl (6.4-8.2)
[2022-04-20] MEDS ORDERED: ACETAMINOPHEN 1000 MG/100 ML BAG IVPB PRN (21:03)
[2022-04-21] MEDS: INSULIN SLIDING SCALE (NOVOLOG) 1 VIAL SQ SCH ×4 (07:00→21:29)
[2022-04-21] MEDS: ALBUTEROL SO4 2.5/IPRATROPIUM 0.5 INH SOL 3 ML VIAL.NEB. NEB PRN ×3 (08:15→15:13)
[2022-04-21 08:42] LABS: BASO % 0.4 % (0-2.0); EOS % 0.1 % (0-4.5); HEMATOCRIT 18.9 % (35.4-49); LYMPH % 3.2 % (8-40); MCH 27.2 pg (25.7-33.7); MCHC 32.6 g/dl (32.0-35.9); MEAN CELL VOLUME 83.2 fl (80-96); MEAN PLT VOLUME 7.4 fl (7.5-11.1); MONO % 7.1 % (3.8-10.2); NEUT % 89.2 % (42.8-82.8); PLATELET COUNT 234 10^3/uL (134-434); RBC 2.27 M/mm3 (4.00-5.60); RDW 20.4 % (11.9-15.9); WHITE BLOOD COUNT 7.6 K/mm3 (4.0-10.0)
[2022-04-21 08:59] LABS: CALCIUM 8.4 mg/dL (8.5-10.1); CHLORIDE 111 mmol/L (98-107); SODIUM 145 mmol/L (136-145)
[2022-04-21 09:00] LABS: ALBUMIN 2.6 g/dl (3.4-5.0); ANION GAP 8 MMOL/L (8-16); BLOOD UREA NITROGEN 28.4 mg/dL (7-18); CO2 26 mmol/L (21-32); GLUCOSE,RANDOM 93 mg/dL (74-106)
[2022-04-21 09:02] LABS: CREATININE 2.4 mg/dL (0.55-1.3); SGOT/AST 24 U/L (15-37); SGPT/ALT 38 U/L (13-61)
[2022-04-21 09:04] LABS: BILIRUBIN,TOTAL 1.2 mg/dL (0.2-1); HEMOGLOBIN 6.2 GM/dL (11.7-16.9); TOT PROT 5.3 g/dl (6.4-8.2)
[2022-04-21 09:06] LABS: ALK PHOS 69 U/L (45-117)
[2022-04-21] MEDS ORDERED: FUROSEMIDE 40 MG/4 ML INJECTABLE VIAL IVPUSH ONE ×2 (09:58→14:00)
[2022-04-21] MEDS ORDERED: NICOTINE 14 MG/24 HOURS TOPICAL PATCH TD SCH (10:00)
[2022-04-21] MEDS: PANTOPRAZOLE 40 MG TABLET PO SCH (10:06)
[2022-04-21] MEDS ORDERED: POTASSIUM CHLORIDE TABS 20 MEQ TABLET.ER (FP) PO ONE (11:41)
[2022-04-21] MEDS ORDERED: ALPRAZolam 0.25 MG TABLET PO ONE (14:53)
[2022-04-21] MEDS ORDERED: morphine SULFATE 4 MG/ML VIAL IVPUSH PRN (18:15)
[2022-04-21] MEDS: HYDROmorphone HCl 2 MG/ML VIAL IVPUSH PRN ×2 (20:55→23:43)
[2022-04-21] MEDS: ONDANSETRON 4 MG/2 ML VIAL IVPUSH PRN (20:55)
[2022-04-21] MEDS: CHLORHEXIDINE GLUCONATE 4% CLEANSER FOR DECOLONIZATION TP SCH (21:18)
[2022-04-21 21:34] LABS: INR 1.25 (0.83-1.09); PROTHROMBIN TIME (PATIENT) 14.4 SEC (9.7-13.0)
[2022-04-21] MEDS: MUPIROCIN 2% TOPICAL OINTMENT FOR DECOLONIZATION NS SCH (21:34)
[2022-04-21 21:50] LABS: CHLORIDE 110 mmol/L (98-107); SODIUM 145 mmol/L (136-145)
[2022-04-21 21:52] LABS: CALCIUM 8.6 mg/dL (8.5-10.1)
[2022-04-21 21:53] LABS: ALBUMIN 2.8 g/dl (3.4-5.0); ANION GAP 8 MMOL/L (8-16); BLOOD UREA NITROGEN 28.7 mg/dL (7-18); CO2 27 mmol/L (21-32); GLUCOSE,RANDOM 84 mg/dL (74-106); MAGNESIUM 1.9 mg/dL (1.8-2.4)
[2022-04-21 21:56] LABS: CREATININE 2.3 mg/dL (0.55-1.3); PHOSPHOROUS 3.6 mg/dL (2.5-4.9); SGOT/AST 21 U/L (15-37); SGPT/ALT 36 U/L (13-61)
[2022-04-21 21:58] LABS: TOT PROT 5.8 g/dl (6.4-8.2)
[2022-04-21 21:58] LABS: HEMATOCRIT 26.1 % (35.4-49); HEMOGLOBIN 8.5 GM/dL (11.7-16.9); MCH 27.6 pg (25.7-33.7); MCHC 32.5 g/dl (32.0-35.9); MEAN CELL VOLUME 84.9 fl (80-96); MEAN PLT VOLUME 7.1 fl (7.5-11.1); PLATELET COUNT 238 10^3/uL (134-434); RBC 3.07 M/mm3 (4.00-5.60); RDW 19.2 % (11.9-15.9); WHITE BLOOD COUNT 9.8 K/mm3 (4.0-10.0)
[2022-04-21 21:59] LABS: ALK PHOS 76 U/L (45-117)
[2022-04-21 22:50] LABS: ANISOCYTOSIS 0; MACROCYTOSIS 0; OVALOCYTE 1+
[2022-04-22] MEDS: ONDANSETRON 4 MG/2 ML VIAL IVPUSH PRN ×2 (04:01→09:31)
[2022-04-22] MEDS: INSULIN SLIDING SCALE (NOVOLOG) 1 VIAL SQ SCH ×4 (07:27→21:48)
[2022-04-22 07:57] LABS: CALCIUM 8.5 mg/dL (8.5-10.1)
[2022-04-22 07:58] LABS: ALBUMIN 2.8 g/dl (3.4-5.0); BLOOD UREA NITROGEN 28.8 mg/dL (7-18); HEMATOCRIT 26.1 % (35.4-49); HEMOGLOBIN 8.8 GM/dL (11.7-16.9); MAGNESIUM 2.1 mg/dL (1.8-2.4); MCH 28.5 pg (25.7-33.7); MCHC 33.5 g/dl (32.0-35.9); MEAN CELL VOLUME 85.1 fl (80-96); MEAN PLT VOLUME 7.6 fl (7.5-11.1); PLATELET COUNT 221 10^3/uL (134-434); RBC 3.07 M/mm3 (4.00-5.60); RDW 19.1 % (11.9-15.9); WHITE BLOOD COUNT 9.6 K/mm3 (4.0-10.0)
[2022-04-22 08:01] LABS: CREATININE 2.2 mg/dL (0.55-1.3); PHOSPHOROUS 3.6 mg/dL (2.5-4.9)
[2022-04-22 08:02] LABS: BILIRUBIN,TOTAL 1.8 mg/dL (0.2-1); TOT PROT 5.8 g/dl (6.4-8.2)
[2022-04-22] MEDS ORDERED: LORazepam 0.5 MG TABLET PO ONE (08:04)
[2022-04-22] MEDS: ALBUTEROL SO4 2.5/IPRATROPIUM 0.5 INH SOL 3 ML VIAL.NEB. NEB PRN ×3 (08:10→16:15)
[2022-04-22 08:34] LABS: EPI CELLS 4 /uL (0-25.1); HYALINE CASTS 0 /uL (0-3.1); PH,URINE 5.5 (5.0-8.0); URINE APPEARANCE CLEAR; URINE BACTERIA 10 /uL (0-1359); URINE BILIRUBIN NEGATIVE (NEGATIVE); URINE COLOR YELLOW; URINE GLUCOSE (UA) TRACE (NEGATIVE); URINE KETONE NEGATIVE (NEGATIVE); URINE LEUK ESTERASE NEGATIVE (NEGATIVE); URINE NITRITE NEGATIVE (NEGATIVE); URINE PROTEIN 2+ (NEGATIVE); URINE RBC 16 /uL (0-23.9); URINE UROBILINOGEN 0.2 mg/dL (0.2-1.0); URINE WBC 6 /uL (0-25.8)
[2022-04-22] MEDS: MUPIROCIN 2% TOPICAL OINTMENT FOR DECOLONIZATION NS SCH ×2 (09:29→21:48)
[2022-04-22] MEDS: SACUBITRIL/VALSARTAN 24 MG-26 MG TABLET PO SCH ×2 (09:29→21:48)
[2022-04-22] MEDS: NICOTINE 14 MG/24 HOURS TOPICAL PATCH TD SCH (09:30)
[2022-04-22] MEDS: HYDROmorphone HCl 2 MG/ML VIAL IVPUSH PRN ×3 (09:30→21:56)
[2022-04-22] MEDS ORDERED: PANTOPRAZOLE 40 MG TABLET PO SCH (10:00)
[2022-04-22 11:16] LABS: ANISOCYTOSIS 1+; MACROCYTOSIS 0
[2022-04-22] MEDS ORDERED: PANTOPRAZOLE SODIUM 40 MG VIAL IVPB SCH (12:00)
[2022-04-22] MEDS ORDERED: LIDOCAINE HCL 1%, 10 MG/ML (20ML VIAL) ONE (14:57)
[2022-04-22] MEDS ORDERED: HYDROmorphone HCl 2 MG/ML VIAL IVPUSH ONE (17:17)
[2022-04-22] MEDS: CHLORHEXIDINE GLUCONATE 4% CLEANSER FOR DECOLONIZATION TP SCH (21:48)
[2022-04-22] MEDS: PANTOPRAZOLE SODIUM 40 MG VIAL IVPB SCH (21:48)
[2022-04-22] MEDS ORDERED: PANTOPRAZOLE SODIUM 40 MG in SODIUM CHLORIDE 100 ML IVPUSH SCH (22:00)
[2022-04-23] MEDS: HYDROmorphone HCl 2 MG/ML VIAL IVPUSH PRN ×4 (01:51→21:19)
[2022-04-23 05:13] LABS: BF WBC & OTHER NUCLEATED CELLS 719 /mm3
[2022-04-23] MEDS: INSULIN SLIDING SCALE (NOVOLOG) 1 VIAL SQ SCH ×4 (06:37→21:21)
[2022-04-23 07:18] LABS: HEMATOCRIT 25.5 % (35.4-49); HEMOGLOBIN 8.2 GM/dL (11.7-16.9); MCH 27.5 pg (25.7-33.7); MCHC 32.1 g/dl (32.0-35.9); MEAN CELL VOLUME 85.7 fl (80-96); MEAN PLT VOLUME 7.5 fl (7.5-11.1); PLATELET COUNT 203 10^3/uL (134-434); RBC 2.98 M/mm3 (4.00-5.60); RDW 19.5 % (11.9-15.9); WHITE BLOOD COUNT 8.2 K/mm3 (4.0-10.0)
[2022-04-23 07:42] LABS: CALCIUM 8.1 mg/dL (8.5-10.1)
[2022-04-23 07:43] LABS: ALBUMIN 2.4 g/dl (3.4-5.0); BLOOD UREA NITROGEN 31.9 mg/dL (7-18)
[2022-04-23 07:46] LABS: CREATININE 2.3 mg/dL (0.55-1.3)
[2022-04-23 07:47] LABS: BILIRUBIN,TOTAL 1.5 mg/dL (0.2-1); TOT PROT 5.1 g/dl (6.4-8.2)
[2022-04-23] MEDS: PANTOPRAZOLE SODIUM 40 MG VIAL IVPB SCH ×2 (09:21→21:21)
[2022-04-23] MEDS: SACUBITRIL/VALSARTAN 24 MG-26 MG TABLET PO SCH ×2 (09:21→21:20)
[2022-04-23] MEDS: MUPIROCIN 2% TOPICAL OINTMENT FOR DECOLONIZATION NS SCH ×2 (09:25→21:20)
[2022-04-23] MEDS: NICOTINE 14 MG/24 HOURS TOPICAL PATCH TD SCH (09:26)
[2022-04-23] MEDS: ONDANSETRON 4 MG/2 ML VIAL IVPUSH PRN (10:43)
[2022-04-23 11:13] LABS: BODY FLUID MACROPHAGES 6 %; BODY FLUID MESOTHELIAL 9 %; BODY FLUID MONOCYTE 17 %
[2022-04-23] MEDS ORDERED: LACTATED RINGERS SOLUTION 1,000 ML/1,000 ML INFUS.BAG IV SCH (11:45)
[2022-04-23] MEDS: METOPROLOL TARTRATE 25 MG TABLET (FP) PO SCH ×2 (12:52→21:21)
[2022-04-23] MEDS: LACTATED RINGERS SOLUTION 1,000 ML/1,000 ML INFUS.BAG IV SCH (12:53)
[2022-04-23] MEDS ORDERED: MINERAL OIL ENEMA 133 ML ENEMA PR ONE (14:50)
[2022-04-23] MEDS: CHLORHEXIDINE GLUCONATE 4% CLEANSER FOR DECOLONIZATION TP SCH (21:41)
[2022-04-24] MEDS: LACTATED RINGERS SOLUTION 1,000 ML/1,000 ML INFUS.BAG IV SCH (00:05)
[2022-04-24] MEDS: HYDROmorphone HCl 2 MG/ML VIAL IVPUSH PRN ×4 (06:34→21:46)
[2022-04-24] MEDS: INSULIN SLIDING SCALE (NOVOLOG) 1 VIAL SQ SCH ×4 (07:10→21:56)
[2022-04-24 08:15] LABS: BASO % 0.4 % (0-2.0); EOS % 3.5 % (0-4.5); HEMATOCRIT 24.1 % (35.4-49); LYMPH % 5.3 % (8-40); MCH 28.7 pg (25.7-33.7); MCHC 33.4 g/dl (32.0-35.9); MEAN PLT VOLUME 7.4 fl (7.5-11.1); MONO % 7.8 % (3.8-10.2); PLATELET COUNT 176 10^3/uL (134-434); RDW 20.6 % (11.9-15.9); WHITE BLOOD COUNT 6.3 K/mm3 (4.0-10.0)
[2022-04-24 08:24] LABS: BLOOD UREA NITROGEN 34.1 mg/dL (7-18); CALCIUM 8.3 mg/dL (8.5-10.1); MAGNESIUM 1.8 mg/dL (1.8-2.4)
[2022-04-24 08:25] LABS: ALBUMIN 2.2 g/dl (3.4-5.0)
[2022-04-24 08:27] LABS: CREATININE 2.1 mg/dL (0.55-1.3); PHOSPHOROUS 2.3 mg/dL (2.5-4.9)
[2022-04-24 08:29] LABS: BILIRUBIN,TOTAL 0.9 mg/dL (0.2-1); TOT PROT 4.7 g/dl (6.4-8.2)
[2022-04-24 09:28] LABS: ANISOCYTOSIS 2+; MACROCYTOSIS 2+; TARGET CELLS 1+
[2022-04-24] MEDS: SACUBITRIL/VALSARTAN 24 MG-26 MG TABLET PO SCH ×2 (11:18→21:45)
[2022-04-24] MEDS: METOPROLOL TARTRATE 25 MG TABLET (FP) PO SCH ×2 (11:18→21:45)
[2022-04-24] MEDS: PANTOPRAZOLE SODIUM 40 MG VIAL IVPB SCH ×2 (11:18→21:53)
[2022-04-24] MEDS: MUPIROCIN 2% TOPICAL OINTMENT FOR DECOLONIZATION NS SCH (11:19)
[2022-04-24] MEDS: NICOTINE 14 MG/24 HOURS TOPICAL PATCH TD SCH (11:19)
[2022-04-24] MEDS ORDERED: ALBUTEROL SO4 2.5/IPRATROPIUM 0.5 INH SOL 3 ML VIAL.NEB. NEB PRN (15:40)
[2022-04-24] MEDS ORDERED: ONDANSETRON 4 MG/2 ML VIAL IVPUSH PRN (15:40)
[2022-04-24] MEDS ORDERED: CHLORHEXIDINE GLUCONATE 4% CLEANSER FOR DECOLONIZATION TP SCH (22:00)
[2022-04-24] MEDS ORDERED: MUPIROCIN 2% TOPICAL OINTMENT FOR DECOLONIZATION NS SCH (22:00)
[2022-04-25] MEDS: HYDROmorphone HCl 2 MG/ML VIAL IVPUSH PRN ×5 (03:26→23:08)
[2022-04-25] MEDS: INSULIN SLIDING SCALE (NOVOLOG) 1 VIAL SQ SCH ×4 (06:10→23:04)
[2022-04-25 08:29] LABS: BASO % 1.2 % (0-2.0); EOS % 5.6 % (0-4.5); HEMATOCRIT 28.9 % (35.4-49); HEMOGLOBIN 9.1 GM/dL (11.7-16.9); LYMPH % 4.8 % (8-40); MCH 27.3 pg (25.7-33.7); MCHC 31.6 g/dl (32.0-35.9); MEAN CELL VOLUME 86.5 fl (80-96); MEAN PLT VOLUME 8.1 fl (7.5-11.1); MONO % 10.1 % (3.8-10.2); NEUT % 78.3 % (42.8-82.8); PLATELET COUNT 182 10^3/uL (134-434); RBC 3.34 M/mm3 (4.00-5.60); RDW 20.7 % (11.9-15.9); WHITE BLOOD COUNT 6.1 K/mm3 (4.0-10.0)
[2022-04-25] MEDS: SACUBITRIL/VALSARTAN 24 MG-26 MG TABLET PO SCH ×2 (09:24→21:36)
[2022-04-25] MEDS: PANTOPRAZOLE SODIUM 40 MG VIAL IVPB SCH ×2 (09:25→10:56)
[2022-04-25] MEDS: METOPROLOL TARTRATE 25 MG TABLET (FP) PO SCH ×2 (09:25→21:36)
[2022-04-25 09:47] LABS: CREATININE 2.2 mg/dL (0.55-1.3)
[2022-04-25 09:48] LABS: ALBUMIN 2.3 g/dl (3.4-5.0)
[2022-04-25 09:49] LABS: BILIRUBIN,TOTAL 0.5 mg/dL (0.2-1)
[2022-04-25] MEDS ORDERED: MAGNESIUM CITRATE 300 ML BOTTLE PO ONE ×3 (09:52→14:42)
[2022-04-25] MEDS: NICOTINE 14 MG/24 HOURS TOPICAL PATCH TD SCH (10:19)
[2022-04-25] MEDS: PANTOPRAZOLE SODIUM 40 MG VIAL IVPUSH SCH ×2 (10:59→21:36)
[2022-04-25] MEDS ORDERED: INSULIN (NOVOLOG) ASPART 100 UNITS/ML 10ML VIAL ONE (11:45)
[2022-04-26] MEDS: HYDROmorphone HCl 2 MG/ML VIAL IVPUSH PRN ×3 (04:56→16:00)
[2022-04-26] MEDS: INSULIN SLIDING SCALE (NOVOLOG) 1 VIAL SQ SCH ×4 (06:07→22:58)
[2022-04-26] MEDS: NICOTINE 14 MG/24 HOURS TOPICAL PATCH TD SCH (09:30)
[2022-04-26] MEDS: PANTOPRAZOLE SODIUM 40 MG VIAL IVPUSH SCH ×2 (09:31→22:43)
[2022-04-26] MEDS: SACUBITRIL/VALSARTAN 24 MG-26 MG TABLET PO SCH ×2 (09:31→22:48)
[2022-04-26] MEDS: METOPROLOL TARTRATE 25 MG TABLET (FP) PO SCH ×2 (09:31→22:47)
[2022-04-26] MEDS: POLYETHYLENE GLYCOL (HEALTHYLAX) 3350 17 GM PACKET PO SCH (09:32)
[2022-04-26] MEDS ORDERED: SENNOSIDES 8.6MG TABLET (FP) PO PRN (21:41)
[2022-04-26] MEDS: oxyCODONE HCL 5 MG TABLET PO PRN (22:43)
[2022-04-27] MEDS: INSULIN SLIDING SCALE (NOVOLOG) 1 VIAL SQ SCH ×4 (06:20→21:48)
[2022-04-27 08:15] LABS: BASO % 0.9 % (0-2.0); EOS % 4.4 % (0-4.5); HEMATOCRIT 27.2 % (35.4-49); HEMOGLOBIN 8.7 GM/dL (11.7-16.9); LYMPH % 4.2 % (8-40); MCH 27.7 pg (25.7-33.7); MCHC 32.1 g/dl (32.0-35.9); MEAN CELL VOLUME 86.6 fl (80-96); MEAN PLT VOLUME 8.3 fl (7.5-11.1); MONO % 8.2 % (3.8-10.2); NEUT % 82.3 % (42.8-82.8); PLATELET COUNT 170 10^3/uL (134-434); RBC 3.14 M/mm3 (4.00-5.60); RDW 20.2 % (11.9-15.9); WHITE BLOOD COUNT 6.3 K/mm3 (4.0-10.0)
[2022-04-27 08:39] LABS: CALCIUM 8.1 mg/dL (8.5-10.1)
[2022-04-27 08:40] LABS: ALBUMIN 2.4 g/dl (3.4-5.0); BLOOD UREA NITROGEN 43.6 mg/dL (7-18)
[2022-04-27 08:43] LABS: CREATININE 2.1 mg/dL (0.55-1.3)
[2022-04-27 08:44] LABS: BILIRUBIN,TOTAL 0.5 mg/dL (0.2-1)
[2022-04-27] MEDS: POLYETHYLENE GLYCOL (HEALTHYLAX) 3350 17 GM PACKET PO SCH (09:08)
[2022-04-27] MEDS: PANTOPRAZOLE SODIUM 40 MG VIAL IVPUSH SCH ×2 (09:09→21:49)
[2022-04-27] MEDS: METOPROLOL TARTRATE 25 MG TABLET (FP) PO SCH ×2 (09:09→21:47)
[2022-04-27] MEDS: NICOTINE 14 MG/24 HOURS TOPICAL PATCH TD SCH (09:09)
[2022-04-27] MEDS: SACUBITRIL/VALSARTAN 24 MG-26 MG TABLET PO SCH ×2 (09:09→21:47)
[2022-04-27 17:53] VITALS: BMI 19.2
[2022-04-28] MEDS: INSULIN SLIDING SCALE (NOVOLOG) 1 VIAL SQ SCH ×4 (06:41→21:56)
[2022-04-28] MEDS: SACUBITRIL/VALSARTAN 24 MG-26 MG TABLET PO SCH ×2 (09:34→21:55)
[2022-04-28] MEDS: METOPROLOL TARTRATE 25 MG TABLET (FP) PO SCH ×2 (09:34→21:53)
[2022-04-28] MEDS: PANTOPRAZOLE SODIUM 40 MG VIAL IVPUSH SCH ×2 (09:35→21:57)
[2022-04-28] MEDS: NICOTINE 14 MG/24 HOURS TOPICAL PATCH TD SCH (09:35)
[2022-04-28] MEDS: POLYETHYLENE GLYCOL (HEALTHYLAX) 3350 17 GM PACKET PO SCH (09:36)
[2022-04-28] MEDS: oxyCODONE HCL 5 MG TABLET PO PRN (21:51)
[2022-04-28] MEDS: MELATONIN 5 MG TABLETS PO SCH (21:55)
[2022-04-29] MEDS: INSULIN SLIDING SCALE (NOVOLOG) 1 VIAL SQ SCH ×4 (06:02→22:04)
[2022-04-29 08:21] LABS: BASO % 1.1 % (0-2.0); EOS % 4.5 % (0-4.5); HEMATOCRIT 25.3 % (35.4-49); HEMOGLOBIN 7.9 GM/dL (11.7-16.9); LYMPH % 4.5 % (8-40); MCHC 31.2 g/dl (32.0-35.9); MEAN CELL VOLUME 86.6 fl (80-96); MEAN PLT VOLUME 8.4 fl (7.5-11.1); MONO % 8.6 % (3.8-10.2); NEUT % 81.3 % (42.8-82.8); PLATELET COUNT 188 10^3/uL (134-434); RBC 2.92 M/mm3 (4.00-5.60); RDW 20.4 % (11.9-15.9); WHITE BLOOD COUNT 6.4 K/mm3 (4.0-10.0)
[2022-04-29 08:46] LABS: ALBUMIN 2.4 g/dl (3.4-5.0); BLOOD UREA NITROGEN 46.6 mg/dL (7-18)
[2022-04-29 08:50] LABS: BILIRUBIN,TOTAL 0.6 mg/dL (0.2-1); TOT PROT 4.9 g/dl (6.4-8.2)
[2022-04-29] MEDS: SACUBITRIL/VALSARTAN 24 MG-26 MG TABLET PO SCH ×2 (09:51→21:55)
[2022-04-29] MEDS: METOPROLOL TARTRATE 25 MG TABLET (FP) PO SCH ×2 (09:51→21:55)
[2022-04-29] MEDS: NICOTINE 14 MG/24 HOURS TOPICAL PATCH TD SCH (09:52)
[2022-04-29] MEDS: PANTOPRAZOLE SODIUM 40 MG VIAL IVPUSH SCH ×2 (09:52→22:04)
[2022-04-29] MEDS: oxyCODONE HCL 5 MG TABLET PO PRN (09:53)
[2022-04-29] MEDS: POLYETHYLENE GLYCOL (HEALTHYLAX) 3350 17 GM PACKET PO SCH (10:00)
[2022-04-29] MEDS: MELATONIN 5 MG TABLETS PO SCH (21:55)
[2022-04-30] MEDS: INSULIN SLIDING SCALE (NOVOLOG) 1 VIAL SQ SCH ×4 (06:43→21:12)
[2022-04-30 09:01] LABS: BASO % 1.2 % (0-2.0); EOS % 3.8 % (0-4.5); HEMATOCRIT 26.2 % (35.4-49); HEMOGLOBIN 8.3 GM/dL (11.7-16.9); LYMPH % 3.5 % (8-40); MCH 27.6 pg (25.7-33.7); MCHC 31.6 g/dl (32.0-35.9); MEAN CELL VOLUME 87.2 fl (80-96); MEAN PLT VOLUME 8.1 fl (7.5-11.1); MONO % 8.7 % (3.8-10.2); NEUT % 82.8 % (42.8-82.8); PLATELET COUNT 205 10^3/uL (134-434); RDW 20.1 % (11.9-15.9); WHITE BLOOD COUNT 6.4 K/mm3 (4.0-10.0)
[2022-04-30 09:23] LABS: CALCIUM 8.2 mg/dL (8.5-10.1)
[2022-04-30 09:24] LABS: ALBUMIN 2.4 g/dl (3.4-5.0); BLOOD UREA NITROGEN 47.8 mg/dL (7-18)
[2022-04-30 09:27] LABS: CREATININE 1.9 mg/dL (0.55-1.3)
[2022-04-30 09:29] LABS: BILIRUBIN,TOTAL 0.4 mg/dL (0.2-1); TOT PROT 5.1 g/dl (6.4-8.2)
[2022-04-30] MEDS: METOPROLOL TARTRATE 25 MG TABLET (FP) PO SCH ×2 (10:27→21:06)
[2022-04-30] MEDS: POLYETHYLENE GLYCOL (HEALTHYLAX) 3350 17 GM PACKET PO SCH (10:28)
[2022-04-30] MEDS: PANTOPRAZOLE SODIUM 40 MG VIAL IVPUSH SCH ×2 (10:28→21:07)
[2022-04-30] MEDS: SACUBITRIL/VALSARTAN 24 MG-26 MG TABLET PO SCH ×2 (10:28→21:05)
[2022-04-30] MEDS: NICOTINE 14 MG/24 HOURS TOPICAL PATCH TD SCH (10:28)
[2022-04-30] MEDS: MELATONIN 5 MG TABLETS PO SCH (21:07)
[2022-05-01] MEDS: INSULIN SLIDING SCALE (NOVOLOG) 1 VIAL SQ SCH ×4 (06:39→22:06)
[2022-05-01] MEDS: POLYETHYLENE GLYCOL (HEALTHYLAX) 3350 17 GM PACKET PO SCH (09:32)
[2022-05-01] MEDS: METOPROLOL TARTRATE 25 MG TABLET (FP) PO SCH ×2 (09:33→21:59)
[2022-05-01] MEDS: NICOTINE 14 MG/24 HOURS TOPICAL PATCH TD SCH (09:33)
[2022-05-01] MEDS: PANTOPRAZOLE SODIUM 40 MG VIAL IVPUSH SCH ×2 (09:33→22:00)
[2022-05-01] MEDS: SACUBITRIL/VALSARTAN 24 MG-26 MG TABLET PO SCH ×2 (09:33→21:59)
[2022-05-01] MEDS: MELATONIN 5 MG TABLETS PO SCH (22:00)
[2022-05-02] MEDS: INSULIN SLIDING SCALE (NOVOLOG) 1 VIAL SQ SCH ×4 (06:15→21:32)
[2022-05-02] MEDS: SACUBITRIL/VALSARTAN 24 MG-26 MG TABLET PO SCH ×2 (09:47→21:31)
[2022-05-02] MEDS: POLYETHYLENE GLYCOL (HEALTHYLAX) 3350 17 GM PACKET PO SCH (09:48)
[2022-05-02] MEDS: METOPROLOL TARTRATE 25 MG TABLET (FP) PO SCH ×2 (09:48→21:31)
[2022-05-02] MEDS: NICOTINE 14 MG/24 HOURS TOPICAL PATCH TD SCH (09:49)
[2022-05-02] MEDS: PANTOPRAZOLE SODIUM 40 MG VIAL IVPUSH SCH ×2 (09:49→21:32)
[2022-05-02] MEDS: MELATONIN 5 MG TABLETS PO SCH (21:31)
[2022-05-03] MEDS ORDERED: morphine SULFATE 4 MG/ML VIAL IVPUSH ONE ×2 (02:00→19:25)
[2022-05-03] MEDS: INSULIN SLIDING SCALE (NOVOLOG) 1 VIAL SQ SCH ×4 (06:15→21:53)
[2022-05-03 08:27] LABS: ALBUMIN 2.4 g/dl (3.4-5.0); BLOOD UREA NITROGEN 39.2 mg/dL (7-18); CALCIUM 8.1 mg/dL (8.5-10.1)
[2022-05-03 08:31] LABS: BILIRUBIN,TOTAL 0.7 mg/dL (0.2-1)
[2022-05-03 08:32] LABS: TOT PROT 4.7 g/dl (6.4-8.2)
[2022-05-03] MEDS: SACUBITRIL/VALSARTAN 24 MG-26 MG TABLET PO SCH ×2 (09:31→21:42)
[2022-05-03] MEDS: NICOTINE 14 MG/24 HOURS TOPICAL PATCH TD SCH (09:31)
[2022-05-03] MEDS: METOPROLOL TARTRATE 25 MG TABLET (FP) PO SCH ×2 (09:31→22:00)
[2022-05-03] MEDS: PANTOPRAZOLE SODIUM 40 MG VIAL IVPUSH SCH ×2 (09:31→22:00)
[2022-05-03] MEDS: POLYETHYLENE GLYCOL (HEALTHYLAX) 3350 17 GM PACKET PO SCH (09:31)
[2022-05-03] MEDS ORDERED: ACETAMINOPHEN 325 MG TABLET (FP) PO PRN (19:26)
[2022-05-03] MEDS: MELATONIN 5 MG TABLETS PO SCH (21:45)
[2022-05-04] MEDS: INSULIN SLIDING SCALE (NOVOLOG) 1 VIAL SQ SCH ×4 (07:33→21:33)
[2022-05-04] MEDS: METOPROLOL TARTRATE 25 MG TABLET (FP) PO SCH ×2 (09:19→21:30)
[2022-05-04] MEDS: PANTOPRAZOLE SODIUM 40 MG VIAL IVPUSH SCH ×2 (09:19→21:30)
[2022-05-04] MEDS: NICOTINE 14 MG/24 HOURS TOPICAL PATCH TD SCH (09:20)
[2022-05-04] MEDS: SACUBITRIL/VALSARTAN 24 MG-26 MG TABLET PO SCH ×2 (09:20→21:30)
[2022-05-04] MEDS: POLYETHYLENE GLYCOL (HEALTHYLAX) 3350 17 GM PACKET PO SCH (09:21)
[2022-05-04] MEDS: MELATONIN 5 MG TABLETS PO SCH (21:30)
[2022-05-05] MEDS: INSULIN SLIDING SCALE (NOVOLOG) 1 VIAL SQ SCH ×4 (06:51→21:31)
[2022-05-05 07:40] LABS: BASO % 1.1 % (0-2.0); EOS % 4.5 % (0-4.5); HEMATOCRIT 20.7 % (35.4-49); LYMPH % 5.3 % (8-40); MCH 27.3 pg (25.7-33.7); MCHC 31.6 g/dl (32.0-35.9); MEAN CELL VOLUME 86.5 fl (80-96); MEAN PLT VOLUME 7.6 fl (7.5-11.1); NEUT % 79.1 % (42.8-82.8); PLATELET COUNT 291 10^3/uL (134-434); RBC 2.39 M/mm3 (4.00-5.60); RDW 20.2 % (11.9-15.9); WHITE BLOOD COUNT 6.7 K/mm3 (4.0-10.0)
[2022-05-05 07:44] LABS: HEMOGLOBIN 6.5 GM/dL (11.7-16.9)
[2022-05-05 08:03] LABS: ALBUMIN 2.5 g/dl (3.4-5.0); CALCIUM 8.6 mg/dL (8.5-10.1)
[2022-05-05 08:04] LABS: BLOOD UREA NITROGEN 47.2 mg/dL (7-18)
[2022-05-05 08:07] LABS: CREATININE 2.4 mg/dL (0.55-1.3)
[2022-05-05 08:09] LABS: BILIRUBIN,TOTAL 0.4 mg/dL (0.2-1); TOT PROT 5.1 g/dl (6.4-8.2)
[2022-05-05] MEDS: NICOTINE 14 MG/24 HOURS TOPICAL PATCH TD SCH (09:53)
[2022-05-05] MEDS: PANTOPRAZOLE SODIUM 40 MG VIAL IVPUSH SCH ×2 (09:53→21:30)
[2022-05-05] MEDS: SACUBITRIL/VALSARTAN 24 MG-26 MG TABLET PO SCH ×2 (09:53→21:30)
[2022-05-05] MEDS: METOPROLOL TARTRATE 25 MG TABLET (FP) PO SCH ×2 (09:53→21:30)
[2022-05-05] MEDS: POLYETHYLENE GLYCOL (HEALTHYLAX) 3350 17 GM PACKET PO SCH (09:53)
[2022-05-05] MEDS: FUROSEMIDE 40 MG TABLET (FP) PO SCH (13:22)
[2022-05-05] MEDS: MELATONIN 5 MG TABLETS PO SCH (21:30)
[2022-05-06] MEDS: INSULIN SLIDING SCALE (NOVOLOG) 1 VIAL SQ SCH ×4 (06:23→22:21)
[2022-05-06 07:12] LABS: BASO % 0.6 % (0-2.0); EOS % 3.1 % (0-4.5); HEMATOCRIT 25.8 % (35.4-49); HEMOGLOBIN 8.2 GM/dL (11.7-16.9); LYMPH % 3.7 % (8-40); MCH 27.3 pg (25.7-33.7); MCHC 31.7 g/dl (32.0-35.9); MEAN CELL VOLUME 85.9 fl (80-96); MEAN PLT VOLUME 7.9 fl (7.5-11.1); MONO % 10.6 % (3.8-10.2); PLATELET COUNT 295 10^3/uL (134-434); RDW 18.7 % (11.9-15.9); WHITE BLOOD COUNT 7.1 K/mm3 (4.0-10.0)
[2022-05-06 07:44] LABS: ALBUMIN 2.6 g/dl (3.4-5.0); BLOOD UREA NITROGEN 50.8 mg/dL (7-18)
[2022-05-06 07:46] LABS: CALCIUM 8.7 mg/dL (8.5-10.1)
[2022-05-06 07:47] LABS: CREATININE 2.3 mg/dL (0.55-1.3)
[2022-05-06 07:48] LABS: BILIRUBIN,TOTAL 1.5 mg/dL (0.2-1); TOT PROT 5.2 g/dl (6.4-8.2)
[2022-05-06] MEDS: PANTOPRAZOLE SODIUM 40 MG VIAL IVPUSH SCH ×2 (09:40→22:21)
[2022-05-06] MEDS: NICOTINE 14 MG/24 HOURS TOPICAL PATCH TD SCH (09:40)
[2022-05-06] MEDS: METOPROLOL TARTRATE 25 MG TABLET (FP) PO SCH ×2 (09:40→22:19)
[2022-05-06] MEDS: FUROSEMIDE 40 MG TABLET (FP) PO SCH (09:41)
[2022-05-06] MEDS: SACUBITRIL/VALSARTAN 24 MG-26 MG TABLET PO SCH ×2 (09:41→22:21)
[2022-05-06] MEDS: POLYETHYLENE GLYCOL (HEALTHYLAX) 3350 17 GM PACKET PO SCH (09:41)
[2022-05-06] MEDS: MELATONIN 5 MG TABLETS PO SCH (22:20)
[2022-05-07] MEDS: INSULIN SLIDING SCALE (NOVOLOG) 1 VIAL SQ SCH ×2 (06:27→11:22)
[2022-05-07 07:34] LABS: BASO % 0.8 % (0-2.0); EOS % 3.9 % (0-4.5); HEMATOCRIT 24.8 % (35.4-49); HEMOGLOBIN 8.2 GM/dL (11.7-16.9); LYMPH % 5.6 % (8-40); MCH 28.5 pg (25.7-33.7); MCHC 33.1 g/dl (32.0-35.9); MEAN CELL VOLUME 86.1 fl (80-96); MEAN PLT VOLUME 7.6 fl (7.5-11.1); MONO % 10.8 % (3.8-10.2); NEUT % 78.9 % (42.8-82.8); PLATELET COUNT 295 10^3/uL (134-434); RBC 2.89 M/mm3 (4.00-5.60); RDW 18.8 % (11.9-15.9); WHITE BLOOD COUNT 6.2 K/mm3 (4.0-10.0)
[2022-05-07 07:52] LABS: CALCIUM 8.4 mg/dL (8.5-10.1)
[2022-05-07 07:53] LABS: ALBUMIN 2.6 g/dl (3.4-5.0); BLOOD UREA NITROGEN 48.3 mg/dL (7-18)
[2022-05-07 07:56] LABS: CREATININE 2.2 mg/dL (0.55-1.3)
[2022-05-07 07:57] LABS: TOT PROT 5.2 g/dl (6.4-8.2)
[2022-05-07 07:59] LABS: BILIRUBIN,TOTAL 0.5 mg/dL (0.2-1)
[2022-05-07] MEDS: METOPROLOL TARTRATE 25 MG TABLET (FP) PO SCH (09:24)
[2022-05-07] MEDS: PANTOPRAZOLE SODIUM 40 MG VIAL IVPUSH SCH (09:24)
[2022-05-07] MEDS: FUROSEMIDE 40 MG TABLET (FP) PO SCH (09:25)
[2022-05-07] MEDS: POLYETHYLENE GLYCOL (HEALTHYLAX) 3350 17 GM PACKET PO SCH (09:25)
[2022-05-07] MEDS: NICOTINE 14 MG/24 HOURS TOPICAL PATCH TD SCH (09:25)
[2022-05-07] MEDS: SACUBITRIL/VALSARTAN 24 MG-26 MG TABLET PO SCH (09:25)
[2022-05-07 16:35] VITALS: BP 127/73; PULSE 97; RESP 18; TEMP 99
== END 2022-05-07 17:00 | disposition home or self-care (01) | DRG 180 ==
LOC: JER 15:17 → JERBED 19:17 → J4W 04-20 00:20 → JICU 04-21 20:06 → J4W 04-24 15:23
PROVIDERS: ADMIT Internal Medicine; ATTEND Internal Medicine
PROC: 30233N1 Transfusion of Nonautologous Red Blood Cells into Peripheral Vein, Percutaneous Approach (ICD-10-PCS; 2022-04-20)
PROC: 0W9B30Z Drainage of Left Pleural Cavity with Drainage Device, Percutaneous Approach (ICD-10-PCS; principal; 2022-04-22)
DX: C34.12 Malignant neoplasm of upper lobe, left bronchus or lung (principal); I50.23 Acute on chronic systolic (congestive) heart failure; J96.01 Acute respiratory failure with hypoxia; N17.9 Acute kidney failure, unspecified; I24.8 Other forms of acute ischemic heart disease; J90 Pleural effusion, not elsewhere classified; R64 Cachexia; Z68.1 Body mass index [BMI] 19.9 or less, adult; I13.0 Hypertensive heart and chronic kidney disease with heart failure and stage 1 through stage 4 chronic kidney disease, or unspecified chronic kidney disease; K59.00 Constipation, unspecified; D50.9 Iron deficiency anemia, unspecified; D64.9 Anemia, unspecified; F17.210 Nicotine dependence, cigarettes, uncomplicated; J38.00 Paralysis of vocal cords and larynx, unspecified; R60.0 Localized edema; I27.20 Pulmonary hypertension, unspecified; M54.9 Dorsalgia, unspecified; E11.22 Type 2 diabetes mellitus with diabetic chronic kidney disease; N18.9 Chronic kidney disease, unspecified; I35.1 Nonrheumatic aortic (valve) insufficiency
CPT/HCPCS: 36415; 36430; 36511; 70490-TC; 71045-TC-FY; 71046-TC-FY; 71250-TC; 74019-TC-FY; 76775-TC; 80053; 81003; 82330; 82436; 82962; 83036; 83615; 83735; 83880; 84100; 84133; 84300; 84484; 85025; 85027; 85610; 86850; 86900; 86901; 86922; 87070; 87075; 87186; 87205; 88108; 88305-TC; 93005; 93010; 93306-TC; 93970-TC; 94640; 94761; 97116-GP; 97161-GP; 99285-25; C9803-CS; P9016; P9058; U0003; U0005